=== PATIENT | male | born 1985 ===

== ENCOUNTER 2023-08-27 09:41 | Outpatient (CLI) | payer SELFPAY ==
[2023-08-27 22:27] LABS: HBs Antibody, Quant >1000.0 mIU/mL (See Note); Hepatitis B Surface Ab Positive (See Note)
[2023-08-28 10:44] LABS: Varicella IgG Antibody Positive (See Note)
[2023-08-28 10:47] LABS: Measles IgG Antibody Positive (See Note)
[2023-08-28 10:50] LABS: Mumps Antibody IgG Positive (See Note); Rubella IgG Ab (UVM) Positive (See Note)
[2023-08-29 11:15] LABS: TB Interpretation Positive (Negative); TB1 Ag minus Nil 8.98 IU/ml; TB2 Ag minus Nil 8.98 IU/mL
== END 2023-08-27 09:42 | disposition home or self-care (01) ==
LOC: LBO 09:41
PROVIDERS: Visit Provider Nurse Practitioner Family
DX: Z02.1 Encounter for pre-employment examination (principal)
CPT/HCPCS: 36415; 86706; 86787; 86480; 86735; 86762; 86765

== ENCOUNTER → 2023-09-02 03:45 | Outpatient (CLI) | payer SELFPAY ==
--- NOTE | 2023-09-02 08:45 | DI.RAD_ITS ---
Exam(s) XR CHEST 2V PA LATERAL EXAM: XR CHEST 2V PA LATERAL CLINICAL HISTORY: screening, POSITIVE QUANTIFERON TB GOLD TEST, R76.12 TECHNIQUE: 2D digital imaging was performed. Two views. COMPARISON: No exams were available for comparison FINDINGS: HEART: Normal size. Aorta: Not dilated. PULMONARY VASCULATURE: Normal. LUNGS: Clear. PLEURAL SPACE: No pleural effusion or pneumothorax. BONE:Unremarkable for age. Soft tissues: Unremarkable. IMPRESSION: No acute abnormality. No evidence of acute or old healed tuberculosis. DATA REPOSITORY: RADIATION DOSE DELIVERED:
== END ==
PROVIDERS: Visit Provider Nurse Practitioner Family
DX: R76.12 Nonspecific reaction to cell mediated immunity measurement of gamma interferon antigen response without active tuberculosis (principal)
CPT/HCPCS: 71046